=== PATIENT | female | born 1955 | race Caucasian/White ===

== ENCOUNTER 2020-06-21 09:20 | Emergency (ER) | payer MEDICARE ==
--- NOTE | 2020-06-21 10:16 | RAD ---
3 VIEWS RIGHT SHOULDER: Date: 06/21/2020 COMPARISON: None. HISTORY: Right shoulder pain after fall. FINDINGS: Three views of the right shoulder shows questionable alteration in the trabecular pattern of the scap kellie. No fracture of the humerus or clavicle seen. IMPRESSION: Questionable abnormality of the right scapula could represent nondisplaced scapula fracture. POS: EAA
--- NOTE | 2020-06-21 10:51 | RAD ---
XR Scapula Rt 2 View STANDARD History: Trauma Comparison: Shoulder radiograph same day Findings: No definitive scapular fractures appreciated. Moderate degenerative disease acromioclavicul ar joint. Visualized ribs are intact. Impression: No displaced scapular fracture appreciated.
== END 2020-06-21 10:56 | disposition home or self-care (01) ==
LOC: ERS 09:20
DX: S40.011A Contusion of right shoulder, initial encounter (principal); I10 Essential (primary) hypertension; E11.9 Type 2 diabetes mellitus without complications; E78.5 Hyperlipidemia, unspecified; Z87.891 Personal history of nicotine dependence; Z79.84 Long term (current) use of oral hypoglycemic drugs; Z79.82 Long term (current) use of aspirin; Z79.899 Other long term (current) drug therapy; W22.8XXA Striking against or struck by other objects, initial encounter

== ENCOUNTER 2020-08-15 18:45 | Emergency (ER) | payer MEDICARE ==
--- NOTE | 2020-08-15 21:09 | RAD ---
RIGHT SHOULDER THREE VIEWS: 08/15/20 HISTORY: Right shoulder pain that has worsened recently. Patient fell in June. There is severe arthritic changes of the AC joint and mild changes of the glenohumeral joint. There i s no signs of fracture or dislocation. IMPRESSION: Arthritic changes of the shoulder. No acute injury. POS: KE
== END 2020-08-15 22:30 | disposition home or self-care (01) ==
LOC: ERS 18:45
DX: M25.511 Pain in right shoulder (principal); I10 Essential (primary) hypertension; E11.9 Type 2 diabetes mellitus without complications; E78.5 Hyperlipidemia, unspecified; Z87.891 Personal history of nicotine dependence; Z79.82 Long term (current) use of aspirin; Z79.899 Other long term (current) drug therapy

== ENCOUNTER 2020-10-17 06:56 | Outpatient (CLI) | payer MEDICARE ==
[2020-10-17 20:24] LABS: SARS-CoV-2 MS2 Positive; SARS-CoV-2 N Gene Negative; SARS-CoV-2 S Gene Negative; SARS-CoV-2 by NAA Not Detected (NotDetected); SARS-CoV-2 orf1ab Negative
== END 2020-10-17 06:57 | disposition home or self-care (01) ==
LOC: LABBT 06:56
PROVIDERS: ATTEND Internal Medicine Gastroenterology
DX: Z01.812 Encounter for preprocedural laboratory examination (principal); Z12.11 Encounter for screening for malignant neoplasm of colon; K62.5 Hemorrhage of anus and rectum; Z20.828 Contact with and (suspected) exposure to other viral communicable diseases
CPT/HCPCS: 87635; U0003

== ENCOUNTER 2020-10-22 05:41 | Day surgery (SDC) | payer MEDICARE ==
[2020-10-21 10:05] VITALS: BMI 53.2
--- NOTE | 2020-10-22 05:21 | HP ---
SUBJECTIVE: A 65-year-old female comes for a colonoscopy for evaluation of rectal bleeding. The patient has family history of colon cancer, apparently her mother had colon cancer. The patient never had a colonoscopy, although . Bleeding is mild . She has no abdominal pain . She comes for colonoscopy for the above reasons. ALLERGIES: MORPHINE, IBUPROFEN. SOCIAL HISTORY: smoker MEDICAL ILLNESSES: 1. Morbid obesity. 2. Hypertension. 3. Diabetes mellitus. 4. Gout. 5. Osteoarthritis. SURGERIES: 1. Hernia repair. 2. Tubal ligation. 3. . PHYSICAL EXAMINATION: GENERAL: She is morbidly obese. VITAL SIGNS: 339 pounds, pulse is 70, blood pressure CARDIOVASCULAR SYSTEM: Normal heart sounds. LUNGS: Clear to auscultation. ABDOMEN: Soft. no tenderness. ADMITTING DIAGNOSIS: A 65-year-old female with rectal bleeding, family history of colon cancer. She comes for colonoscopy. I did explain to Ms. Mack that because of morbid obesity sometimes it is difficult to get a complete colonoscopy. She understood the . PLAN: Colonoscopy. Job ID: [id number]
[2020-10-22] MEDS ORDERED: Lidocaine 1% PF 5 ML VIAL ONE (09:37)
[2020-10-22] MEDS ORDERED: PROPOFOL 200 MG/20 ML VIAL ONE (09:37)
--- NOTE | 2020-10-23 07:14 | OP ---
DATE OF PROCEDURE: 10/22/2020 PROCEDURES PERFORMED: 1. Colonoscopy with polypectomy. 2. Colonoscopy with 10-G[place] BiCap probe at polypectomy site because of mild bleeding. PREOPERATIVE DIAGNOSES: Hematochezia and family history of colon cancer. POSTOPERATIVE DIAGNOSES: Multiple colon polyps . DESCRIPTION OF PROCEDURE: The patient was placed on her left lateral position and was given sedation by Anesthesia Department. The rectal exam was done before scope was advanced into the rectum. No lesions felt on exam. A Pentax videocolonoscope was introduced into the rectum and advanced all the way to cecum. The prep was reasonably good except she had retained fecal debris, which was somewhat seen throughout the colon. Water was irrigated and washed out. The mucosa appears normal throughout the colon. The ileocecal area, cecum, ascending colon, hepatic flexure, no lesion seen. A 1 cm size sessile polyp in transverse colon removed with snare cautery with good hemostasis. The two large polyps in the descending colon just close to splenic flexure. One was sessile and measured approximately 2 cm. This was removed with polypectomy snare. Post polypectomy, there was mild oozing of blood noted. This was cauterized with a 10-[place] BiCap probe. Another sessile polyp close to the other polyp measuring approximately 1.5 cm. This was again removed with snare cautery with good hemostasis. The descending colon showed a 1.5 cm sessile polyp. This was removed with snare cautery with good hemostasis. The lower sigmoid colon showed a very long, large polyp. The polyp was pedunculated, but there was a long stalk and quite thick. This probably measured about 3 to 3.5 cm. This was removed with snare cautery. The polypectomy site cauterized with a 10-[place] BiCap probe. The rectum showed no pathology. DISCHARGE PLANNING: A 65-year-old female came for a colonoscopy for hematochezia and family history of colon cancer. She underwent colonoscopy and polypectomy with removal of multiple large polyps. DISCHARGE RECOMMENDATION: The patient was on a clear liquid diet today for next 24 hours. If she has no additional bleeding or no abdominal pain, advance diet to regular diet tomorrow. Job ID: [id number]
== END 2020-10-22 10:55 | disposition home or self-care (01) ==
LOC: SDC 05:41
PROVIDERS: ATTEND Internal Medicine Gastroenterology
PROC: 0DBM8ZX Excision of Descending Colon, Via Natural or Artificial Opening Endoscopic, Diagnostic (ICD-10-PCS; principal; 2020-10-22)
PROC: 0DBL8ZX Excision of Transverse Colon, Via Natural or Artificial Opening Endoscopic, Diagnostic (ICD-10-PCS; 2020-10-22)
PROC: 0DBN8ZX Excision of Sigmoid Colon, Via Natural or Artificial Opening Endoscopic, Diagnostic (ICD-10-PCS; 2020-10-22)
DX: D12.3 Benign neoplasm of transverse colon (principal); D12.4 Benign neoplasm of descending colon; D12.5 Benign neoplasm of sigmoid colon; K92.1 Melena; I10 Essential (primary) hypertension; E11.9 Type 2 diabetes mellitus without complications; M10.9 Gout, unspecified; M19.90 Unspecified osteoarthritis, unspecified site; E66.01 Morbid (severe) obesity due to excess calories; Z68.43 Body mass index [BMI] 50.0-59.9, adult; Z80.0 Family history of malignant neoplasm of digestive organs; Z79.82 Long term (current) use of aspirin; Z79.84 Long term (current) use of oral hypoglycemic drugs; Z79.899 Other long term (current) drug therapy; Z88.5 Allergy status to narcotic agent; Z88.6 Allergy status to analgesic agent; Z91.018 Allergy to other foods
CPT/HCPCS: 88305; J2704

== ENCOUNTER 2020-11-12 13:56 | Emergency (ER) | payer MEDICARE ==
[2020-11-12] MEDS ORDERED: Methocarbamol 500 MG TAB PO SCH (16:30)
== END 2020-11-12 16:49 | disposition home or self-care (01) ==
LOC: ERS 13:56
DX: M62.830 Muscle spasm of back (principal); Z79.899 Other long term (current) drug therapy; Z79.82 Long term (current) use of aspirin; I10 Essential (primary) hypertension; E11.9 Type 2 diabetes mellitus without complications; E78.5 Hyperlipidemia, unspecified; Z87.891 Personal history of nicotine dependence
CPT/HCPCS: 99283

== ENCOUNTER 2021-02-18 16:46 | Emergency (ER) | payer MEDICARE ==
[2021-02-18] MEDS ORDERED: HYDROcodone/Acetaminophen 5/325 mg Tablet ONE (18:09)
== END 2021-02-18 18:05 | disposition home or self-care (01) ==
LOC: ERS 16:46
DX: S16.1XXA Strain of muscle, fascia and tendon at neck level, initial encounter (principal)
CPT/HCPCS: 99283

== ENCOUNTER 2021-04-12 10:40 | Emergency (ER) | payer MEDICARE ==
[2021-04-12 13:30] LABS: #Basophils 0.1 thou/uL (0.0-0.2); #Eosinphils 0.1 thou/uL (0.0-0.7); #Lymphocytes 2.3 thou/uL (1.20-3.40); #Monocytes 0.6 thou/uL (0.11-0.59); #Neutrophils 8.3 thou/uL (1.40-6.50); %Basophils 0.6 % (0.0-1.0); %Eosinophils 0.8 % (0.0-10.0); %Lymphocytes 20.3 % (21.0-51.0); %Monocytes 5.3 % (0.0-10.0); Hemoglobin 15.3 g/dL (12.0-16.0); Mean Corpuscular HGB CONC 33.4 g/dL (32.0-36.0); Mean Corpuscular Hemoglobin 28.8 pg (27.0-31.0); Mean Corpuscular Volume 86.3 fL (78.0-98.0); Mean Platelet Volume 10.4 fL (7.4-10.4); Platelet Count 232 thou/uL (130-400); Red Blood Cell (RBC) Count 5.32 mill/uL (4.20-5.40); White Blood Cell (WBC) Count 11.3 thou/uL (4.8-10.8)
[2021-04-12 13:53] LABS: ALT (SGPT) 41 U/L (8-55); AST (SGOT) 38 U/L (5-34); Alkaline Phosphatase 121 U/L (40-110); Anion Gap 14 mmol/L (10-20); BUN (Urea Nitrogen) 15 mg/dL (9.8-20.1); Bilirubin, Total 0.4 mg/dL (0.2-1.2); Calc. Creatinine Clearance 0 mL/min (70-130); Calcium 10.1 mg/dL (7.8-10.44); Carbon Dioxide 25 mmol/L (23-31); Chloride 100 mmol/L (98-107); Glucose 318 mg/dL (80-115); Potassium 4.4 mmol/L (3.5-5.1); Sodium 135 mmol/L (136-145)
[2021-04-12 14:12] LABS: Bilirubin Negative (Negative); Blood, Urine Trace (Negative); Glucose, Urine (Dipstick) 250 mg/dL (Negative); Ketone, Urine Negative (Negative); Leukocyte Negative (Negative); Nitrite Negative (Negative); Protein, Urine (Dipstick) 100 mg/dL (Neg-Trace); Urobilinogen 0.2 mg/dL (Less than 2); pH, Urine 5.5 (5.0-9.0)
[2021-04-12] MEDS ORDERED: HYDROcodone/Acetaminophen 5/325 mg Tablet ONE (14:12)
[2021-04-12 14:15] LABS: Clarity Clear (Clear)
[2021-04-12 14:16] LABS: Specific Gravity, Urine 1.028 (1.005-1.030)
[2021-04-12 14:17] LABS: RBC/HPF 0-3 HPF (0-3)
[2021-04-12 14:18] LABS: Bacteria/HPF 3+ HPF (None Seen); WBC/HPF 0-3 HPF (0-3)
== END 2021-04-12 15:23 | disposition home or self-care (01) ==
LOC: ERS 10:40
DX: M51.36 Other intervertebral disc degeneration, lumbar region (principal); I10 Essential (primary) hypertension; E11.9 Type 2 diabetes mellitus without complications; E78.5 Hyperlipidemia, unspecified; Z79.891 Long term (current) use of opiate analgesic; E66.01 Morbid (severe) obesity due to excess calories
CPT/HCPCS: 36415; 74176; 80053; 81003; 81015; 85025

== ENCOUNTER 2021-08-20 12:34 | Emergency (ER) | payer MEDICARE ==
[2021-08-20] MEDS ORDERED: HYDROcodone/Acetaminophen 10/325 mg Tablet ONE (13:27)
== END 2021-08-20 14:10 | disposition home or self-care (01) ==
LOC: ERS 12:34
DX: M54.31 Sciatica, right side (principal); I10 Essential (primary) hypertension; E11.9 Type 2 diabetes mellitus without complications; E78.5 Hyperlipidemia, unspecified; Z87.891 Personal history of nicotine dependence; Z79.82 Long term (current) use of aspirin; Z79.899 Other long term (current) drug therapy

== ENCOUNTER 2022-03-18 17:41 | Emergency (ER) | payer MEDICARE ==
[2022-03-18] MEDS ORDERED: HYDROcodone/Acetaminophen 5/325 mg Tablet ONE (18:11)
[2022-03-18 18:24] LABS: #Basophils 0.1 thou/uL (0.0-0.2); #Eosinphils 0.2 thou/uL (0.0-0.7); #Lymphocytes 2.4 thou/uL (1.20-3.40); #Monocytes 0.7 thou/uL (0.11-0.59); #Neutrophils 7.5 thou/uL (1.40-6.50); %Basophils 0.5 % (0.0-1.0); %Eosinophils 1.9 % (0.0-10.0); %Lymphocytes 21.8 % (21.0-51.0); %Monocytes 6.8 % (0.0-10.0); Mean Corpuscular HGB CONC 33.5 g/dL (32.0-36.0); Mean Corpuscular Hemoglobin 29.7 pg (27.0-31.0); Mean Corpuscular Volume 88.6 fL (78.0-98.0); Mean Platelet Volume 9.4 fL (7.4-10.4); Platelet Count 233 thou/uL (130-400); RBC Distribution Width 12.9 % (11.5-14.5); Red Blood Cell (RBC) Count 5.04 mill/uL (4.20-5.40); White Blood Cell (WBC) Count 10.8 thou/uL (4.8-10.8)
[2022-03-18] MEDS ORDERED: Dexamethasone 4 MG TAB ONE (18:31)
[2022-03-18 18:45] LABS: ALT (SGPT) 47 U/L (8-55); AST (SGOT) 46 U/L (5-34); Albumin 3.9 g/dL (3.4-4.8); Alkaline Phosphatase 135 U/L (40-110); Anion Gap 17 mmol/L (10-20); BUN (Urea Nitrogen) 21 mg/dL (9.8-20.1); Bilirubin, Total 0.4 mg/dL (0.2-1.2); Calc. Creatinine Clearance 0 mL/min (70-130); Calcium 9.8 mg/dL (7.8-10.44); Carbon Dioxide 23 mmol/L (23-31); Chloride 97 mmol/L (98-107); Globulin 3.2 g/dL (2.4-3.5); Glucose 463 mg/dL (80-115); Potassium 4.3 mmol/L (3.5-5.1); Protein, Total 7.1 g/dL (5.8-8.1); Sodium 133 mmol/L (136-145)
== END 2022-03-18 19:43 | disposition home or self-care (01) ==
LOC: ERS 17:41
DX: M54.31 Sciatica, right side (principal); R79.89 Other specified abnormal findings of blood chemistry; E11.9 Type 2 diabetes mellitus without complications; I10 Essential (primary) hypertension; E78.5 Hyperlipidemia, unspecified; Z87.891 Personal history of nicotine dependence; Z79.899 Other long term (current) drug therapy; Z79.82 Long term (current) use of aspirin; Z79.84 Long term (current) use of oral hypoglycemic drugs
CPT/HCPCS: 36415; 80053; 85025; 85379; J8540

== ENCOUNTER 2022-05-03 16:40 | Emergency (ER) | payer MEDICARE | END 2022-05-03 19:45 | disposition home or self-care (01) | LOC: ERS 16:40 | DX: H00.014 Hordeolum externum left upper eyelid (principal); I10 Essential (primary) hypertension; E11.9 Type 2 diabetes mellitus without complications; E78.5 Hyperlipidemia, unspecified; Z87.891 Personal history of nicotine dependence; Z79.899 Other long term (current) drug therapy; Z79.82 Long term (current) use of aspirin | CPT/HCPCS: 99283 ==

== ENCOUNTER 2022-08-10 18:12 | Emergency (ER) | payer MEDICARE ==
[2022-08-10] MEDS ORDERED: Diazepam 5 MG TAB ONE (20:19)
== END 2022-08-10 22:04 | disposition home or self-care (01) ==
LOC: ERS 18:12
DX: M79.651 Pain in right thigh (principal); I10 Essential (primary) hypertension; E11.9 Type 2 diabetes mellitus without complications; Z87.891 Personal history of nicotine dependence; Z79.82 Long term (current) use of aspirin; Z79.899 Other long term (current) drug therapy

== ENCOUNTER 2022-11-23 18:12 | Emergency (ER) | payer MEDICARE | END 2022-11-23 21:28 | disposition home or self-care (01) | LOC: ERS 18:12 | DX: M54.2 Cervicalgia (principal); I10 Essential (primary) hypertension; E11.9 Type 2 diabetes mellitus without complications; E78.5 Hyperlipidemia, unspecified; Z79.82 Long term (current) use of aspirin; Z87.891 Personal history of nicotine dependence | CPT/HCPCS: 99283 ==

== ENCOUNTER 2023-01-22 07:54 | Outpatient (CLI) | payer MEDICARE | END 2023-01-22 07:55 | disposition home or self-care (01) | LOC: TBSIIMAG 07:54 | PROVIDERS: ATTEND Orthopaedic Surgery | DX: M75.101 Unspecified rotator cuff tear or rupture of right shoulder, not specified as traumatic (principal) ==

== ENCOUNTER 2023-02-05 11:58 | Emergency (ER) | payer MEDICARE ==
[2023-02-05 12:52] LABS: #Basophils 0.1 thou/uL (0.0-0.2); #Eosinphils 0.2 thou/uL (0.0-0.7); #Lymphocytes 2.4 thou/uL (1.20-3.40); #Monocytes 0.6 thou/uL (0.11-0.59); #Neutrophils 6.7 thou/uL (1.40-6.50); %Basophils 0.6 % (0.0-1.0); %Eosinophils 1.9 % (0.0-10.0); %Lymphocytes 23.9 % (21.0-51.0); %Monocytes 6.4 % (0.0-10.0); %Neutrophils 67.2 % (42.0-75.0); Hemoglobin 14.9 g/dL (12.0-16.0); Mean Corpuscular HGB CONC 32.6 g/dL (32.0-36.0); Platelet Count 210 10x3/uL (130-400); RBC Distribution Width 12.5 % (11.5-14.5); Red Blood Cell (RBC) Count 5.13 mill/uL (4.20-5.40); White Blood Cell (WBC) Count 9.9 10x3/uL (4.8-10.8)
[2023-02-05] MEDS ORDERED: fentaNYL 50 mcg/mL 1 mL Vial ONE (13:03)
[2023-02-05 13:05] LABS: ALT (SGPT) 58 U/L (8-55); AST (SGOT) 65 U/L (5-34); Albumin 3.9 g/dL (3.4-4.8); Alkaline Phosphatase 112 U/L (40-110); Anion Gap 15 mmol/L (10-20); BUN (Urea Nitrogen) 16 mg/dL (9.8-20.1); Bilirubin, Total 0.5 mg/dL (0.2-1.2); CRP (Inflammatory) 2.55 mg/dL (= or < 0.5); Calc. Creatinine Clearance 0 mL/min (70-130); Calcium 10.1 mg/dL (7.8-10.44); Carbon Dioxide 26 mmol/L (23-31); Chloride 97 mmol/L (98-107); Estimated GFR 68; Glucose 341 mg/dL (80-115); Potassium 4.2 mmol/L (3.5-5.1); Protein, Total 6.9 g/dL (5.8-8.1); Sodium 134 mmol/L (136-145)
[2023-02-05 16:32] LABS: Bacteria/HPF 4+ HPF (None Seen); Bilirubin Negative (Negative); Blood, Urine Negative (Negative); Clarity Turbid (Clear); Glucose, Urine (Dipstick) 200 mg/dL (Negative); Ketone, Urine Negative (Negative); Leukocyte 75 Leu/uL (Negative); Nitrite Negative (Negative); Protein, Urine (Dipstick) 70 mg/dL (Neg-Trace); RBC/HPF 0-3 HPF (0-3); Specific Gravity, Urine 1.029 (1.002-1.036)
[2023-02-05] MEDS ORDERED: Acetaminophen 500 MG TAB ONE (16:52)
[2023-02-05 17:24] LABS: Bacteria/HPF 3+ HPF (None Seen); Bilirubin Negative (Negative); Blood, Urine Negative (Negative); Clarity Turbid (Clear); Glucose, Urine (Dipstick) 200 mg/dL (Negative); Ketone, Urine Negative (Negative); Leukocyte 25 Leu/uL (Negative); Nitrite Negative (Negative); Protein, Urine (Dipstick) 70 mg/dL (Neg-Trace); RBC/HPF 0-3 HPF (0-3); Squamous Epithelial 21-50 HPF (0-3)
== END 2023-02-05 18:09 | disposition home or self-care (01) ==
LOC: ERS 11:58
DX: S76.911A Strain of unspecified muscles, fascia and tendons at thigh level, right thigh, initial encounter (principal); M16.11 Unilateral primary osteoarthritis, right hip; I10 Essential (primary) hypertension; E11.9 Type 2 diabetes mellitus without complications; E78.00 Pure hypercholesterolemia, unspecified; X58.XXXA Exposure to other specified factors, initial encounter; Z87.891 Personal history of nicotine dependence; Z79.82 Long term (current) use of aspirin; Z79.84 Long term (current) use of oral hypoglycemic drugs; Z79.899 Other long term (current) drug therapy
CPT/HCPCS: 73502; 74177; 80053; 82550; 85025; 86140; 96374; 99284; J3010; 36415; 81003; 81015

== ENCOUNTER 2023-07-13 11:52 | Emergency (ER) | payer MEDICARE ==
[2023-07-13] MEDS ORDERED: Lorazepam 1 MG TAB ONE (12:49)
[2023-07-13] MEDS ORDERED: Meclizine HCl 25 MG TAB ONE (12:49)
[2023-07-13 12:59] LABS: #Basophils 0.1 thou/uL (0.0-0.2); #Eosinphils 0.1 thou/uL (0.0-0.7); #Monocytes 0.6 thou/uL (0.11-0.59); #Neutrophils 6.8 thou/uL (1.40-6.50); %Basophils 0.9 % (0.0-1.0); %Eosinophils 1.1 % (0.0-10.0); %Lymphocytes 20.6 % (21.0-51.0); %Monocytes 6.3 % (0.0-10.0); %Neutrophils 70.3 % (42.0-75.0); Hematocrit 44.5 % (36.0-47.0); Hemoglobin 14.9 g/dL (12.0-16.0); Mean Corpuscular HGB CONC 33.5 g/dL (32.0-36.0); Mean Corpuscular Hemoglobin 28.8 pg (27.0-31.0); Mean Corpuscular Volume 85.9 fl (78.0-98.0); Mean Platelet Volume 12.5 fL (7.4-10.4); Platelet Count 213 10x3/uL (130-400); RBC Distribution Width 13.2 % (11.5-14.5); Red Blood Cell (RBC) Count 5.18 mill/uL (4.20-5.40); White Blood Cell (WBC) Count 9.7 10x3/uL (4.8-10.8)
[2023-07-13] MEDS ORDERED: Ondansetron ODT 4 MG TAB ONE (13:16)
[2023-07-13 13:20] LABS: ALT (SGPT) 54 U/L (8-55); AST (SGOT) 38 U/L (5-34); Albumin 3.9 g/dL (3.4-4.8); Alkaline Phosphatase 136 U/L (40-110); Anion Gap 17 mmol/L (10-20); BUN (Urea Nitrogen) 17 mg/dL (9.8-20.1); Bilirubin, Total 0.4 mg/dL (0.2-1.2); Calc. Creatinine Clearance 0 mL/min (70-130); Calcium 9.7 mg/dL (7.8-10.44); Carbon Dioxide 22 mmol/L (23-31); Chloride 97 mmol/L (98-107); Estimated GFR 54; Potassium 4.3 mmol/L (3.5-5.1); Protein, Total 6.9 g/dL (5.8-8.1); Sodium 132 mmol/L (136-145)
[2023-07-13 13:34] LABS: Glucose 480 mg/dL (80-115)
[2023-07-13 16:10] LABS: Actual Bicarbonate (HCO3v) 25.7 mEq/L (22-28); Base Excess -1.1 mEq/L (-2.0 to +3.0); Calcium, Ionized (venous) 1.14 mmol/L (1.16-1.32); Chloride (VBG) 98 mmol/L (98-106); Hematocrit-VBG 43 % (36.0-47.0); Hemoglobin (Hb) 14.6 g/dL (11.7-16.1); Sodium 133.6 mmol/L (133-146); pH (venous) 7.319 (7.32-7.43)
== END 2023-07-13 16:30 | disposition home or self-care (01) ==
LOC: ERS 11:52
DX: R42 Dizziness and giddiness (principal); E11.65 Type 2 diabetes mellitus with hyperglycemia; I10 Essential (primary) hypertension; E78.5 Hyperlipidemia, unspecified; Z87.891 Personal history of nicotine dependence; Z79.82 Long term (current) use of aspirin; Z79.899 Other long term (current) drug therapy
CPT/HCPCS: 36415; 70450; 80053; 82805; 85025; 93005; 96360; 96361; Q0162

== ENCOUNTER 2024-03-08 08:38 | Emergency (ER) | payer MEDICARE | END 2024-03-08 14:06 | disposition home or self-care (01) | LOC: ERS 08:38 | DX: E83.42 Hypomagnesemia (principal); K62.5 Hemorrhage of anus and rectum; R00.2 Palpitations; I10 Essential (primary) hypertension; E11.9 Type 2 diabetes mellitus without complications; E78.5 Hyperlipidemia, unspecified; Z55.6 Problems related to health literacy; Z79.82 Long term (current) use of aspirin; Z79.899 Other long term (current) drug therapy; Z87.891 Personal history of nicotine dependence | CPT/HCPCS: 71045; 80053; 82274; 83735; 83880; 84443; 84484; 85025; 93005; 94760; 96365; 96375; C9113; J3475 ==

== ENCOUNTER 2024-04-02 14:32 | Inpatient (IN) | payer MEDICARE ==
[~2024-04-02 14:32] MED LIST: Iopamidol-370 76% 500 ML MDV (1 ML CHARGE) ONE
[2024-04-02 16:20] LABS: %Eosinophils 1.9 % (0.0-10.0); %Lymphocytes 20.7 % (21.0-51.0); %Monocytes 7.9 % (0.0-10.0); %Neutrophils 68.2 % (42.0-75.0); Hematocrit 38.3 % (36.0-47.0); Hemoglobin 12.7 g/dL (12.0-16.0); Mean Corpuscular HGB CONC 33.2 g/dL (32.0-36.0); Mean Corpuscular Hemoglobin 28.2 pg (27.0-31.0); Mean Corpuscular Volume 85.1 fL (78.0-98.0); Mean Platelet Volume 12.5 fL (7.4-10.4); Platelet Count 244 10x3/uL (130-400); RBC Distribution Width 13.1 % (11.5-14.5)
[2024-04-02 16:36] LABS: ALT (SGPT) 14 U/L (8-55); AST (SGOT) 13 U/L (5-34); Alkaline Phosphatase 85 U/L (40-110); Anion Gap 16 mmol/L (10-20); BUN (Urea Nitrogen) 18 mg/dL (9.8-20.1); Bilirubin, Total 0.4 mg/dL (0.2-1.2); Calc. Creatinine Clearance 0 mL/min (70-130); Calcium 9.1 mg/dL (7.8-10.44); Carbon Dioxide 21 mmol/L (23-31); Chloride 102 mmol/L (98-107); Estimated GFR 75; Globulin 3.2 g/dL (2.4-3.5); Glucose 328 mg/dL (80-115); Lipase 28 U/L (8-78); Protein, Total 6.2 g/dL (5.8-8.1); Sodium 135 mmol/L (136-145)
[2024-04-02 16:39] LABS: Troponin I Less than 0.010 ng/mL (< 0.028)
[2024-04-02] MEDS ORDERED: Nitroglycerin 2% Ointment 1 INCH/1 GM Packet ONE (16:54)
[2024-04-02] MEDS ORDERED: Furosemide 40 MG (4 mL) VIAL ONE (16:54)
[2024-04-02 17:16] LABS: INR-International Normal Ratio 1.1; Prothrombin Time 14.1 sec (12.0-14.7)
[2024-04-02 17:17] LABS: PTT 30.9 sec (22.9-36.1)
[2024-04-02 17:19] LABS: D-Dimer Test 0.63 mcg/mL (0.27-0.43)
[2024-04-02] MEDS ORDERED: Ondansetron ODT 4 MG TAB PO PRN (19:13)
[2024-04-02] MEDS ORDERED: Dextrose 50% Abboject 50 ML SYRINGE SLOW IVP PRN (19:13)
[2024-04-02] MEDS ORDERED: Glucagon 1 MG/ML KIT IM PRN (19:13)
[2024-04-02] MEDS ORDERED: Ondansetron PF 4 MG/2 ML Vial IVP PRN (19:13)
[2024-04-02] MEDS ORDERED: Dextrose 5% in Water 1,000 ML IV PRN (19:13)
[2024-04-02 20:51] LABS: Troponin I 0.011 ng/mL (< 0.028)
[2024-04-02] MEDS: Insulin Glargine 30 UNITS/0.3 ML VIAL SC SCH (21:03)
[2024-04-02 21:32] VITALS: BMI 48.3
[2024-04-02 21:50] LABS: Influenza A by NAA Not Detected (NotDetected); Influenza B by NAA Not Detected (NotDetected); SARS-CoV-2 NAA Rapid Test Not Detected (NotDetected)
[2024-04-03] MEDS: Furosemide 40 MG (4 mL) VIAL SLOW IVP SCH (05:04)
[2024-04-03 05:31] LABS: #Basophils 0.08 10x3/uL (0.0-0.2); %Basophils 0.7 % (0.0-1.0); %Eosinophils 2.3 % (0.0-10.0); %Lymphocytes 23.4 % (21.0-51.0); %Monocytes 10.1 % (0.0-10.0); %Neutrophils 63.1 % (42.0-75.0); Hemoglobin 13.5 g/dL (12.0-16.0); Mean Corpuscular HGB CONC 32.9 g/dL (32.0-36.0); Mean Corpuscular Hemoglobin 27.4 pg (27.0-31.0); Mean Corpuscular Volume 83.3 fL (78.0-98.0); Mean Platelet Volume 12.8 fL (7.4-10.4); Platelet Count 281 10x3/uL (130-400); RBC Distribution Width 13.2 % (11.5-14.5); Red Blood Cell (RBC) Count 4.92 mill/uL (4.20-5.40)
[2024-04-03 05:49] LABS: Hemoglobin A1c 11.6 % (4.0-6.0)
[2024-04-03 05:54] LABS: Anion Gap 16 mmol/L (10-20); BUN (Urea Nitrogen) 18 mg/dL (9.8-20.1); Calc. Creatinine Clearance 147 mL/min (70-130); Carbon Dioxide 27 mmol/L (23-31); Chloride 99 mmol/L (98-107); Estimated GFR 80; Glucose 237 mg/dL (80-115); Magnesium 1.5 mg/dL (1.6-2.6); Potassium 3.5 mmol/L (3.5-5.1); Sodium 138 mmol/L (136-145)
[2024-04-03] MEDS: HumaLOG 300 UNITS/3 ML VIAL SC PRN (06:10)
[2024-04-03] MEDS: Enoxaparin 40 MG (0.4 mL) SYRINGE SC SCH (09:54)
[2024-04-03] MEDS ORDERED: Electrolyte Replacement Protocol 1 EACH FS SCH (10:45)
[2024-04-03] MEDS ORDERED: Electrolyte Replacement Protocol FS PRN (11:00)
[2024-04-03] MEDS: Magnesium 2 GM/50 ML(in water) 2 GM in Premix 1 BAG IVPB SCH (13:44)
[2024-04-03] MEDS: Potassium Chloride 20 MEQ TAB PO SCH (13:44)
[2024-04-04 04:32] LABS: #Basophils 0.05 10x3/uL (0.0-0.2); %Basophils 0.5 % (0.0-1.0); %Eosinophils 2.6 % (0.0-10.0); %Lymphocytes 23.5 % (21.0-51.0); %Monocytes 11.5 % (0.0-10.0); %Neutrophils 61.5 % (42.0-75.0); Hematocrit 37.4 % (36.0-47.0); Hemoglobin 12.3 g/dL (12.0-16.0); Mean Corpuscular HGB CONC 32.9 g/dL (32.0-36.0); Mean Corpuscular Hemoglobin 28.3 pg (27.0-31.0); Mean Platelet Volume 12.2 fL (7.4-10.4); Platelet Count 254 10x3/uL (130-400); RBC Distribution Width 13.2 % (11.5-14.5); Red Blood Cell (RBC) Count 4.35 mill/uL (4.20-5.40)
[2024-04-04 04:59] LABS: ALT (SGPT) 13 U/L (8-55); AST (SGOT) 15 U/L (5-34); Albumin 2.9 g/dL (3.4-4.8); Alkaline Phosphatase 80 U/L (40-110); Anion Gap 15 mmol/L (10-20); BUN (Urea Nitrogen) 23 mg/dL (9.8-20.1); Bilirubin, Total 0.5 mg/dL (0.2-1.2); Calc. Creatinine Clearance 121 mL/min (70-130); Calcium 9.3 mg/dL (7.8-10.44); Carbon Dioxide 28 mmol/L (23-31); Cardiac Risk 6.9 (Less than 4.5); Chloride 101 mmol/L (98-107); Cholesterol 215 mg/dl (< 200 Desired); Estimated GFR 65; Globulin 3.1 g/dL (2.4-3.5); Glucose 241 mg/dL (80-115); HDL Cholesterol 31 mg/dL (>60 Neg Risk); LDL Cholesterol, Calculated 143 mg/dL; Magnesium 1.6 mg/dL (1.6-2.6); Potassium 4.3 mmol/L (3.5-5.1); Sodium 140 mmol/L (136-145); Triglycerides 206 mg/dL (Less than 150)
[2024-04-04] MEDS ORDERED: CEFAZOLIN 2 GM VIAL ONE (06:30)
[2024-04-04] MEDS ORDERED: Gentamicin 80 MG/2 ML VIAL ONE (06:30)
[2024-04-04] MEDS ORDERED: CEFAZOLIN 1 GM VIAL ONE (06:30)
[2024-04-04] MEDS ORDERED: Lidocaine 1% (PF) 30 ML VIAL ONE (06:50)
[2024-04-04] MEDS ORDERED: Midazolam HCl 2 mg/2 ml Vial ONE ×2 (07:30→07:51)
[2024-04-04] MEDS ORDERED: fentaNYL 50 mcg/mL 1 mL Vial ONE (07:30)
[2024-04-04] MEDS: Magnesium 2 GM/50 ML(in water) 2 GM in Premix 1 BAG IVPB SCH (09:52)
[2024-04-04] MEDS: Atorvastatin Calcium 40 MG TAB PO SCH ×2 (10:02→21:19)
[2024-04-04] MEDS: Acetaminophen 325 MG TAB PO PRN (10:02)
[2024-04-04] MEDS: Doxycycline 100 MG CAP PO SCH ×2 (15:15→21:19)
[2024-04-05] MEDS: HumaLOG 300 UNITS/3 ML VIAL SC PRN (00:11)
[2024-04-05 04:10] LABS: #Basophils 0.05 10x3/uL (0.0-0.2); %Basophils 0.6 % (0.0-1.0); %Eosinophils 3.8 % (0.0-10.0); %Lymphocytes 22.3 % (21.0-51.0); %Monocytes 11.6 % (0.0-10.0); %Neutrophils 61.2 % (42.0-75.0); Hematocrit 37.1 % (36.0-47.0); Hemoglobin 12.3 g/dL (12.0-16.0); Mean Corpuscular HGB CONC 33.2 g/dL (32.0-36.0); Mean Corpuscular Hemoglobin 28.4 pg (27.0-31.0); Mean Corpuscular Volume 85.7 fL (78.0-98.0); Mean Platelet Volume 12.2 fL (7.4-10.4); Platelet Count 240 10x3/uL (130-400); Red Blood Cell (RBC) Count 4.33 mill/uL (4.20-5.40)
[2024-04-05 04:34] LABS: ALT (SGPT) 13 U/L (8-55); AST (SGOT) 19 U/L (5-34); Alkaline Phosphatase 80 U/L (40-110); Anion Gap 15 mmol/L (10-20); BUN (Urea Nitrogen) 26 mg/dL (9.8-20.1); Bilirubin, Total 0.5 mg/dL (0.2-1.2); Calc. Creatinine Clearance 127 mL/min (70-130); Calcium 9.5 mg/dL (7.8-10.44); Carbon Dioxide 27 mmol/L (23-31); Chloride 100 mmol/L (98-107); Estimated GFR 70; Glucose 214 mg/dL (80-115); Magnesium 1.7 mg/dL (1.6-2.6); Potassium 3.6 mmol/L (3.5-5.1); Sodium 138 mmol/L (136-145)
[2024-04-05] MEDS ORDERED: Non-Formulary Item 1 EACH (Sitagliptin Phosphate [Januvia] 100 MG Tab) PO SCH (09:00)
[2024-04-05] MEDS: Magnesium 2 GM/50 ML(in water) 2 GM in Premix 1 BAG IVPB SCH (10:29)
[2024-04-05] MEDS: Alogliptin 25 MG TAB PO SCH (10:41)
[2024-04-05 11:41] VITALS: BP 146/67; TEMP 98
[2024-04-05] MEDS ORDERED: Insulin Glargine 30 UNITS/0.3 ML VIAL SC SCH (21:00)
== END 2024-04-05 14:40 | disposition home or self-care (01) | DRG 243 ==
LOC: ERS 14:32 → 2NO 17:19 → OBSVTOIN 04-03 09:09
PROVIDERS: ADMIT Internal Medicine; ATTEND Family Medicine
PROC: 0JH606Z Insertion of Pacemaker, Dual Chamber into Chest Subcutaneous Tissue and Fascia, Open Approach (ICD-10-PCS; principal; 2024-04-04)
PROC: 02H63JZ Insertion of Pacemaker Lead into Right Atrium, Percutaneous Approach (ICD-10-PCS; 2024-04-04)
PROC: 02HK3JZ Insertion of Pacemaker Lead into Right Ventricle, Percutaneous Approach (ICD-10-PCS; 2024-04-04)
DX: I11.0 Hypertensive heart disease with heart failure (principal); Z68.42 Body mass index [BMI] 45.0-49.9, adult; E11.65 Type 2 diabetes mellitus with hyperglycemia; E66.01 Morbid (severe) obesity due to excess calories; I49.5 Sick sinus syndrome; I44.1 Atrioventricular block, second degree; E78.00 Pure hypercholesterolemia, unspecified; I50.9 Heart failure, unspecified; Z88.8 Allergy status to other drugs, medicaments and biological substances; Z88.5 Allergy status to narcotic agent; Z91.014 Allergy to mammalian meats; Z71.3 Dietary counseling and surveillance; Z87.891 Personal history of nicotine dependence; Z79.82 Long term (current) use of aspirin; Z79.899 Other long term (current) drug therapy; Z79.84 Long term (current) use of oral hypoglycemic drugs; Z98.51 Tubal ligation status; Z90.710 Acquired absence of both cervix and uterus; Z96.651 Presence of right artificial knee joint; Z98.890 Other specified postprocedural states
CPT/HCPCS: 33208; 36415; 36416; 71045; 71275; 80048; 80053; 80061; 83036; 83690; 83735; 83880; 84484; 85025; 85379; 85610; 85730; 87040; 93005; 93010; 93306; 93970; 94760; 96374; 97139; 99152; 99153; C1785; C1898; G0378; J0690; J1580; J1650; J1815; J1940; J2001; J2250; J3010; J3475; Q9967

== ENCOUNTER 2025-09-17 22:35 | Emergency (ER) | payer MEDICARE ==
[2025-09-18 01:05] LABS: #Basophils 0.07 10x3/uL (0.0-0.2); #Eosinophils 0.26 10x3/uL (0.0-0.7); #Monocytes 0.86 10x3/uL (0.11-0.59); #Neutrophils 8.55 10x3/uL (1.40-6.50); %Basophils 0.6 % (0.0-1.0); %Eosinophils 2.2 % (0.0-10.0); %Lymphocytes 17.1 % (21.0-51.0); %Monocytes 7.3 % (0.0-10.0); %Neutrophils 72.0 % (42.0-75.0); Hematocrit 42.0 % (36.0-47.0); Hemoglobin 13.6 g/dL (12.0-16.0); Mean Corpuscular Hemoglobin 26.5 pg (27.0-31.0); Mean Corpuscular Volume 81.9 fL (78.0-98.0); Platelet Count 228 10x3/uL (130-400); Red Blood Cell (RBC) Count 5.13 mill/uL (4.20-5.40); White Blood Cell (WBC) Count 11.86 10x3/uL (4.8-10.8)
[2025-09-18 01:24] LABS: ALT (SGPT) 23 U/L (Less than 34); AST (SGOT) 29 U/L (11-34); Albumin 3.5 g/dL (3.1-4.5); Alkaline Phosphatase 114 U/L (40-110); Anion Gap 18 mmol/L (10-20); BUN (Urea Nitrogen) 16 mg/dL (9.8-20.1); Bilirubin, Total 0.6 mg/dL (0.3-1.2); Calc. Creatinine Clearance 0 mL/min (70-130); Calcium 10.1 mg/dL (7.8-10.44); Carbon Dioxide 25 mmol/L (23-31); Chloride 99 mmol/L (98-107); Globulin 3.5 g/dL (2.4-3.5); Glucose 286 mg/dL (83-110); Potassium 4.2 mmol/L (3.5-5.1); Sodium 138 mmol/L (136-145)
[2025-09-18 02:02] LABS: Bacteria/HPF None Seen HPF (None Seen); CAUTI Indications for Culture Dysuria,urgency,freq; Glucose, Urine (Dipstick) Normal (Negative); Leukocyte Negative Leu/uL (Negative); Protein, Urine (Dipstick) 70 mg/dL (Neg-Trace); RBC/HPF 0-3 HPF (0-3); Specific Gravity, Urine 1.013 (1.002-1.036); WBC/HPF 0-3 HPF (0-3)
[2025-09-18 02:04] LABS: Urine Culture Reflex No No
[2025-09-18] MEDS ORDERED: Acetaminophen 500 MG TAB ONE (03:32)
== END 2025-09-18 04:07 | disposition home or self-care (01) ==
LOC: ERS 22:35
DX: I16.0 Hypertensive urgency (principal); R51.9 Headache, unspecified; E11.65 Type 2 diabetes mellitus with hyperglycemia; I10 Essential (primary) hypertension; E78.5 Hyperlipidemia, unspecified; Z87.891 Personal history of nicotine dependence; Z79.899 Other long term (current) drug therapy
CPT/HCPCS: 36416; 70450; 80053; 81001; 84484; 85025; 93005; 96374; J1815